=== PATIENT | female | born 1980 | race African-American/Black ===

== ENCOUNTER → 2018-03-05 12:06 | Outpatient (CLI) | payer OTHER, SELFPAY ==
[2018-03-01 15:26] VITALS: BMI 33.1
[2018-03-05 14:09] LABS: Hemoglobin A1c 5.8 % (4.2-6.3)
--- OUTSIDE RECORDS SUMMARY | 2018-04-21 06:51 | XMS RPT_ITS ---
:1980 Author Organization [facility] Care Team Providers Name Role Phone DONNY DAVIS MD Attending Unavailable Oleghe, Efewongbe Attending Unavailable Oleghe, Efewongbe Referring Unavailable Oleghe, Efewongbe Attending Unavailable Oleghe, Efewongbe Referring Unavailable Oleghe, Efewongbe Primary Care Unavailable Oleghe, Efewongbe Attending Unavailable Oleghe, Efewongbe Referring Unavailable Oleghe, Efewongbe Attending Unavailable Oleghe, Efewongbe Referring Unavailable PROBLEMS PROBLEMS DATE TYPE CONDITION / CODE ATTENDING STATUS SOURCE 03/01/2018 Unknown R73.9 - Oleghe, Active [place] Hyperglycemia, Efewongbe [facility] unspecified / Hospital R73.9(ICD-10) Repository 07/20/2017 Unknown N93.8 - Other Oleghe, Active [place] specified [facility] abnormal uterine Hospital and vaginal Repository bleeding / N93.8(ICD-10) 06/25/2017 Unknown N91.2 - Oleghe, Active [place] Amenorrhea, Efewongbe [facility] unspecified / Hospital N91.2(ICD-10) Repository PROCEDURES PROCEDURES No Procedure Records FoundRESULTS RESULTS HEMOGLOBIN A1C Collected: 03/05/2018 Status: F Source: [place] 12:23 PM [facility] HOSPITAL REPOSITORY TYPE CODE TESTS RESULT OUT OF RANGE REFERENCE UNITS LAB L501.9985 4.2-6.3 % Normal HGB A1C 5.8 Performed By: #### L501.9985 #### [facility] [place], [address] INTERNAL MEDICINE Observed: 03/02/2018 Status: F Source: [place] OFFICE VISIT 4:46 PM [facility] REPOSITORY [facility] [address] [place] [address] [place] [address] OFFICE VISIT Date of Service: 03/01/18 MR#: [id number] Acct: [id number] Name: OLIVIA CHENEY Rep #: [id number] : 1980 Provider: Donny Davis MD Age/Sex: 37/F Location: [facility] Status: Signed Intake Vital Signs03/01/18 Body Mass Index (BMI) 33.1 03/01/18 Height 5 ft 5 in Intake Visit Reasons: F/U Chief Complaint: follow-up Is patient in pain?: No Allergies No Known Allergies Allergy (Unverified 06/25/17 16:38) Medications NK 06/25/17 [History Confirmed 06/25/17] Is last menstrual period known: Yes PFSH Family History Mother Diabetes Hypertension Social History Smoking Status: Never smoker alcohol intake: never substance use type: does not use what type of physical activity do you participate in: walking frequency: other details: Occasionally HPI HPI Chief Complaint: follow-up Details: OLIVIA CHENEY, is a F who presents to the office today for follow-up of hypertension. Blood pressure optimal at this time at 118/70 8 mmHg. She is also followed up with gynecology for dysfunctional uterine bleed and OCPs were recommended however patient declined. She is however open to trying out IUDs. Periods have been regular lately. ROS Const Constitutional: No weight change, body ache, chills, fatigue, sleep problems, fever(s), change in appetite, snoring, weakness, frequent falls, headache(s) or excessive sweating Eyes Eyes: No change in vision, eye pain, light sensitivity or blurry vision ENT ENT: No headache(s), abnormal hearing, ear pain, tinnitus, sore throat or neck pain Resp Respiratory: No snoring, shortness of breath or wheezing Cardio Cardiology: No excessive sweating, chest pain at rest, chest pain with exertion, shortness of breath, dyspnea on exertion, palpitations, orthopnea or lightheadedness Gastro GI: No abdominal pain, change in bowel habits, constipation, diarrhea, vomiting, nausea/dyspepsia or cramping Genitourinary-Female: No burning urination, painful urination, urinary incontinence, urinary frequency, abnormal vaginal bleeding, pelvic pain or other Musc Musculoskeletal: No neck pain, abnormal walking, joint pain, back pain, limited range of motion, numbness, tingling or muscle weakness Skin Skin: No redness, dry skin, itching, lesions, wounds or rash Neuro Neurology: No weakness, frequent falls, headache(s), abnormal hearing, abnormal walking, numbness, tingling, abnormal speech, dizziness or memory loss Psych Psychiatric: No change in appetite, No memory loss, No anxiety, No depression, No Thoughts of harming yourself/Others Endo Endocrine: No fatigue, excessive sweating, cold intolerance, increased thirst/drinking, heat intolerance, flushing or increased hunger Aller/Imm Allergy/Immunologic: No wheezing, itchy eyes, hives or seasonal allergy symptoms Christiano/Lymp Hematologic/Lymphatic: No easy bleeding, easy bruising or enlarged lymph nodes Exam Const General: cooperative, no acute distress Orientation: alert, awake, oriented x3 [facility] Head: atraumatic, normocephalic Ears: hearing grossly normal bilaterally Resp Effort AND Inspection: normal respiratory effort, able to speak in complete sentences Auscultation: Bilateral: Clear to Auscultation Cardio Rate: regular rate Rhythm: regular rhythm Heart Sounds: S1 normal, S2 normal GI Inspection: obesity Palpation: soft, no hepatosplenomegaly Musc Musculoskeletal: No muscle weakness Neuro General: alert, awake, oriented x3, moves all extremities, CN's II-XI intact bilaterally Extrem General: no clubbing, cyanosis or edema Psych Appearance: grossly normal Mood: congruent mood Affect: normal affect Assessment AND Plan 1. Hypertension I10 Plan Optimally controlled. Currently not on any medication. Continue lifestyle and dietary modifications. 2. Dysfunctional uterine bleeding N93.8 Plan Resolved. Now said to be regular. 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 Will like to try IUDs for contraception. 3. Hyperglycemia R73.9 Plan Noted during her last blood work. Blood sugar of 167. Patient is not sure if this was fasting or random. No prior history/known history of diabetes. A1c ordered. This note was generated with [employer] dictation software. It may contain incorrect words, spelling, and punctuation that were not noted in checking the note before signing. Orders Orders: Coding Level of Care Code Off vis,est,level 3 Diagnoses Hypertension I10 Dysfunctional uterine bleeding N93.8 Hyperglycemia R73.9 03/02/18 1646 <Electronically signed by Donny Davis MD> Date Donny Davis MD Cosigner Signature: Date (if applicable) CC: INTERNAL MEDICINE Observed: 07/21/2017 Status: F Source: [place] OFFICE VISIT 8:31 AM [facility] [address] [place] [address] [place] [address] OFFICE VISIT Date of Service: 07/20/17 MR#: [id number] Acct: [id number] Name: OLIVIA CHENEY Rep #: [id number] : 1980 Provider: Donny Davis MD Age/Sex: 36/F Location: [facility] [place] Status: Signed Intake Vital Signs07/20/17 Height 5 ft 5 in Intake Visit Reasons: 2 WK FU Chief Complaint: follow-up Is patient in pain?: No Allergies No Known Allergies Allergy (Unverified 06/25/17 16:38) Medications NK [NK] 06/25/17 [History Confirmed 06/25/17] PFSH Family History Mother Diabetes Hypertension Social History Smoking Status: Never smoker alcohol intake: never substance use type: does not use what type of physical activity do you participate in: walking frequency: other details: Occasionally HPI HPI Chief Complaint: follow-up Details: OLIVIA CHENEY, is a 36yo F who presents to the office today for follow up. She was seen at her last visit for dysfunctional uterine bleeding. She has no acute complaints at this time. Blood pressure is slightly elevated. Also noted to be elevated at her last visit. No prior history of hypertension however, a strong positive family history. She denies any history of hyperlipidemia. ROS Const Constitutional: No body ache, chills, headache(s), weakness or fever(s) Eyes Eyes: No blurry vision, change in vision, eye pain or discharge ENT ENT: No headache(s), abnormal hearing, ear pain, ear pressure, tinnitus, dizziness/vertigo or balance problems Resp Respiratory: No cough, shortness of breath or wheezing Cardio Cardiology: No chest pain at rest, shortness of breath, dyspnea on exertion or palpitations Gastro GI: No abdominal pain or bloating Musc Musculoskeletal: No muscle weakness Neuro Neurology: No headache(s), weakness or abnormal hearing Aller/Imm Allergy/Immunologic: No wheezing Exam Const General: cooperative, no acute distress Orientation: alert, awake, oriented x3 [facility] Head: atraumatic, normocephalic Ears: hearing grossly normal bilaterally Resp Effort AND Inspection: normal respiratory effort, able to speak in complete sentences Auscultation: Bilateral: Clear to Auscultation Cardio Rate: regular rate Rhythm: regular rhythm Heart Sounds: S1 normal, S2 normal GI Inspection: obesity Palpation: soft, no hepatosplenomegaly Musc Musculoskeletal: No muscle weakness Neuro General: alert, awake, oriented x3, moves all extremities, CN's II-XI intact bilaterally Extrem General: no clubbing, cyanosis or edema Psych Appearance: grossly normal Mood: congruent mood Affect: normal affect Assessment AND Plan 1. Dysfunctional uterine bleeding N93.8 Plan No new changes. Still Amenorrheic. / Further child bearing is not desired. Ultrasound with a small fibroid ( Stable per patient ). Labs not available for review. She may benefit from OCP's. Referred to Gynecology. Follow up in 3 months Orders Referrals: 2. Hypertension I10 Plan Stage 1. Strong family history of. No history of diabetes or hypercholesterolemia. Life style / dietary modifications discussed. Follow up in 3 months. This note was generated with [employer] software. It may contain incorrect words, spelling, and punctuation that were not noted in checking the note before signing. Plan Detail Follow Up 3 Months Coding Level of Care Code Off vis,est,level 3 Diagnoses Dysfunctional uterine bleeding N93.8 Hypertension I10 07/21/17 0831 <Electronically signed by Donny Davis MD> Date Donny Davis MD Cosigner Signature: Date (if applicable) CC: CBC Collected: 07/01/2017 Status: F Source: [facility] 1:58 PM [facility] REPOSITORY TYPE CODE TESTS RESULT OUT OF REFERENCE UNITS RANGE LAB WBC(LOINC) 4.60-10.80 10 3/mcL WBC 10.40 LAB RBCCT(LOINC 4.20-5.40 10 6/mcL ) RBC 5.15 LAB HGB(LOINC) 12.0-16.0 G/dL Hgb 13.6 LAB HCT(LOINC) 37.0-47.0 % Hct 40.4 LAB MCV(LOINC) 80.0-94.0 fL Low MCV 78.5 LAB MCH(LOINC) 27.0-31.2 pg Low MCH 26.3 LAB MCHC(LOINC) 33.0-37.0 G/dL MCHC 33.5 LAB RDW(LOINC) 11.5-14.5 % High RDW 15.0 LAB PLT(LOINC) 130-400 10 3/mcL Platelet 320 LAB MPV(LOINC) 7.4-10.4 fL MPV 8.8 Performed By: #### CBC, ADIFF, ANEU, CMP, GFR, TSH, FT4, HCGQ #### [address] [address] [place], [place] [address] .AUTO DIFF Collected: 07/01/2017 Status: F Source: [facility] 1:58 PM [facility] REPOSITORY TYPE CODE TESTS RESULT OUT OF REFERENCE UNITS RANGE LAB OLIVIA(LOINC) 37.0-80.0 % Neutrophil % 74.3 LAB LYM(LOINC) 10.0-50.0 % Lymphocyte % 17.0 LAB MON(LOINC) 1.7-13.0 % Monocyte % 5.4 LAB EO(LOINC) 0.0-7.0 % Eosinophil % 2.4 LAB BAS(LOINC) 0.0-2.5 % Basophil % 0.9 LAB ABLYM(LOIN 0.77-3.85 10 3/mcL C) Lymphocyte, 1.80 Absolute LAB JOHN(LOINC 0.15-1.00 10 3/mcL ) Monocyte, 0.60 Absolute LAB AEOS(LOINC 0.00-0.40 10 3/mcL ) Eosinophil, 0.30 Absolute LAB ABAS(LOINC 0.00-0.19 10 3/mcL ) Basophil, 0.10 Absolute Performed By: #### CBC, ADIFF, ANEU, CMP, GFR, TSH, FT4, HCGQ #### [address] [address] .NEUABS Collected: 07/01/2017 Status: F Source: [facility] 1:58 PM [facility] REPOSITORY TYPE CODE TESTS RESULT OUT OF REFERENCE UNITS RANGE LAB ANEU(LOINC) 2.85-6.16 10 3/mcL High Neutrophil, 7.70 Absolute Performed By: #### CBC, ADIFF, ANEU, CMP, GFR, TSH, FT4, HCGQ #### [address] [address] CMP Collected: 07/01/2017 Status: F Source: [facility] 1:58 [facility] REPOSITORY TYPE CODE TESTS RESULT OUT OF REFERENCE UNITS RANGE LAB 1547-9 70-105 mg/dL GLUCOSE High 167 LAB NA(LOINC) 136-146 mEq/L Sodium Level 138 LAB K(LOINC) 3.5-5.1 mEq/L Potassium Level 4.0 LAB CL(LOINC) 98-107 mEq/L Chloride 102 LAB CO2(LOINC) 22-29 mEq/L CO2 28 LAB EBAL(LOINC mEq/L ) Electrolyte Balance 8.0 LAB BUN(LOINC) 7.0-18.0 mg/dL BUN 11.4 LAB CRE(LOINC) 0.6-1.2 mg/dL Creatinine Lvl (s) 1.0 LAB BC(LOINC) 7-27 ratio BUN/Creatinine 11 Ratio LAB CA(LOINC) 8.4-10.2 mg/dL Calcium Lvl 8.9 LAB PROT(LOINC 6.0-8.3 G/dL ) Total Protein 6.5 LAB ALB(LOINC) 3.5-5.0 G/dL Albumin Level 4.1 LAB GLB(LOINC) G/dL Globulin 2.4 LAB AG(LOINC) 1.1-2.5 ratio A/G Ratio 1.7 LAB BILT(LOINC 0.2-1.0 mg/dL ) Bili Total 0.4 LAB AP(LOINC) 40-135 IU/L Alk Phos 108 LAB AST(LOINC) 10-40 IU/L AST/SGOT 20 LAB ALT(LOINC) 10-35 IU/L ALT/SGPT 24 Performed By: #### CBC, ADIFF, ANEU, CMP, GFR, TSH, FT4, HCGQ #### [address] [address] .GFR Collected: 07/01/2017 Status: F Source: [facility] 1:58 PM [facility] REPOSITORY TYPE CODE TESTS RESULT OUT OF REFERENCE UNITS RANGE LAB GFRAA(LOINC ml/min/1.73 ) sqm GFR 75 Iranian Result Comment: GFR Population mean for , Non- Americans Ages 20-29 = 116 mL/min/1.73 sq.m. Ages 30-39 = 107 mL/min/1.73 sq.m. Ages 40-49 = 99 mL/min/1.73 sq.m. Ages 50-59 = 93 mL/min/1.73 sq.m. Ages 60-69 = 85 mL/min/1.73 sq.m. Ages 70+ = 75 mL/min/1.73 sq.m. Chronic Kidney Disease: Less than 60 mL/min/1.73 square meters End Stage Renal Disease: Less than 15 mL/min/1.73 square meters LAB GFRNO(LOINC) ml/min/1.73sqm GFR Non- >60 Result Comment: GFR Population mean for , Non- Americans Ages 20-29 = 116 mL/min/1.73 sq.m. Ages 30-39 = 107 mL/min/1.73 sq.m. Ages 40-49 = 99 mL/min/1.73 sq.m. Ages 50-59 = 93 mL/min/1.73 sq.m. Ages 60-69 = 85 mL/min/1.73 sq.m. Ages 70+ = 75 mL/min/1.73 sq.m. Chronic Kidney Disease: Less than 60 mL/min/1.73 square meters End Stage Renal Disease: Less than 15 mL/min/1.73 square meters Performed By: #### CBC, ADIFF, ANEU, CMP, GFR, TSH, FT4, HCGQ #### [address] [place], [place] [address] TSH Collected: 07/01/2017 Status: F Source: [facility] 1:58 [facility] REPOSITORY TYPE CODE TESTS RESULT OUT OF RANGE REFERENCE UNITS LAB TSH(LOINC) 0.27-4.20 mcIU/mL TSH 0.91 Performed By: #### CBC, ADIFF, ANEU, CMP, GFR, TSH, FT4, HCGQ #### [address] [address] FT4 Collected: 07/01/2017 Status: F Source: [facility] 1:58 [facility] REPOSITORY TYPE CODE TESTS RESULT OUT OF RANGE REFERENCE UNITS LAB FT4(LOINC) 0.6-1.7 ng/mL Free T4 1.0 Performed By: #### CBC, ADIFF, ANEU, CMP, GFR, TSH, FT4, HCGQ #### [address] [address] HCGQ Collected: 07/01/2017 Status: F Source: [facility] 1:58 [facility] REPOSITORY TYPE CODE TESTS RESULT OUT OF REFERENCE UNITS RANGE LAB HCGQ(LOINC mIU/mL ) hCG, quantitative <0.5 Result Comment: Below measuring range Quantitative hCG reference ranges: 3 Weeks 5-12 mIU/mL 4 Weeks 10-708 mIU/mL 5 Weeks 217-8,245 mIU/mL 6 Weeks 152-32,177 mIU/mL 7 Weeks 4,059-153,767 mIU/mL 8 Weeks 31,366-149,094 mIU/mL 9 Weeks 59,109-135,901 mIU/mL 10 Weeks 44,186-170,409 mIU/mL 12 Weeks 27,107-201,615 mIU/mL 14 Weeks 24,302-93,646 mIU/mL 16 Weeks 8,905-55,332 mIU/mL Performed By: #### CBC, ADIFF, ANEU, CMP, GFR, TSH, FT4, HCGQ #### [address] [place] [address], [place] [address] US PELVIS NON-OB Observed: 07/01/2017 Status: F Source: [place] W/TRANSVAGINAL 1:00 PM [facility] REPOSITORY ORIGINAL US PELVIS NON-OB TRANSABDOMINAL AND TRANSVAGINAL CLINICAL STATEMENT: Increased bleeding after Depo injection December 2016 COMPARISON: None FINDINGS: The anteverted uterus is 10.4 x 5.0 x 6.3 cm and has normal echotexture. Areas a myometrial fibroid with peripheral calcifications, measuring 2.4 x 2.7 x 2.7 cm. The endometrial double wall thickness is 7 mm. The ovaries are normal in size. The right ovary measures 3.1 x 2.2 x 2.6 cm. The dominant follicles noted within the right ovary. The left ovary measures 2.7 x 2.0 x 2.4 cm. There is positive doppler flow to both ovaries. A small amount of cul-de-sac fluid is considered physiologic. IMPRESSION: 1. There is a myometrial fibroid with peripheral calcifications. 2. The ovaries have a normal sonographic appearance. Interpreted By: Deborah Acuña MD Preliminary Report By: Deborah Acuña MD Electronically Signed By: Deborah Acuña MD Dictated Date: 07/02/2017 12:55:40 PM Prelim Date: 07/02/2017 12:55:40 PM Sign Date: 07/02/2017 12:59:42 PM INTERNAL MEDICINE Observed: 06/26/2017 Status: F Source: [place] OFFICE VISIT 5:10 PM [facility] REPOSITORY [facility] [address] [place] [address] [place] [address] OFFICE VISIT Date of Service: 06/25/17 MR#: [id number] Acct: [id number] Name: OLIVIA CHENEY Rep #: [id number] : 1980 Provider: Donny Davis MD Age/Sex: 36/F Location: [facility] [place] Status: Signed Intake Vital Signs06/25/17 Height 5 ft 5 in 06/25/17 Weight: 198 lb 06/25/17 Body Mass Index (BMI) 32.9 06/25/17 Blood Pressure 142/85 06/25/17 Blood Pressure Location Lt brachial Intake Visit Reasons: EST CARE/ CHECK UP Chief Complaint: Est Care - Check up Is patient in pain?: No Allergies No Known Allergies Allergy (Unverified 06/25/17 16:38) Medications NK [NK] 06/25/17 [History Confirmed 06/25/17] PFSH Family History Mother Diabetes Hypertension Social History Smoking Status: Never smoker alcohol intake: never substance use type: does not use what type of physical activity do you participate in: walking frequency: other details: Occasionally HPI HPI Chief Complaint: Est Care - Check up Details: Olivia Cheney , is a 36yoF who presents to the office today for to establish care. She also has some concerns. Patient reports a history of abnormal uterine bleeding which started in March. Prior to onset, she had a Depo-Provera shot in December and subsequently had no menstrual flows in the month of December and January and February. For the months of March and April she states daily menstrual flow with associated clots however, she has had no uterine bleeding for the months of May and now. She states that she had a test done and this was negative. She denies any prior / similar history. She feels well otherwise and denies dyspareunia or postcoital bleeding. She also denies any significant weight changes. There is no family history of uterine of breast cancer. ROS Const Constitutional: No anorexia, body ache, chills, fatigue, fever(s), decreased energy, malaise, night sweats, sleep problems, other, snoring, excessive sweating, weakness, frequent falls, headache(s), abnormal sleep pattern or change in appetite Eyes Eyes: No blurry vision, change in vision, double vision, discharge, dry eyes, bulging eyes, floaters, eye pain, light sensitivity, spots in vision, tunnel vision, other or visual disturbances ENT ENT: No difficulty swallowing, neck pain, abnormal hearing, headache(s), lip swelling, throat swelling or tongue swelling Resp Respiratory: No cough, change in phlegm color, chest congestion, excessive phlegm production, hemoptysis, pain on inspiration, shortness of breath, pain with cough, snoring, stridor, other or wheezing Cardio Cardiology: No chest pain at rest, chest pain with exertion, leg pain with exertion, excessive sweating, shortness of breath, dyspnea on exertion, generalized swelling, irregular heart rhythm, lightheadedness, orthopnea, radiating jaw, neck or arm pain, fast heart rate, slow heart rate, palpitations or other Gastro GI: No abdominal pain, belching, bloating, change in bowel habits, change in stool character, coffee ground emesis, constipation, cramping, diarrhea, heartburn, difficulty swallowing, feeling full early, excessive flatus, incontinent of stools, Vomiting blood/hematemesis, blood in stool, loose stools, Black,tarry stools, nausea/dyspepsia, pain with swallowing, vomiting or other Genitourinary-Female: Positive for other (Vaginal bleeding two months after on the Depo Shot); no difficulty urinating, burning urination, painful urination, urinary incontinence, urinary frequency, urinary urgency, urinary hesitancy, urinary retention, blood in urine, Frequent nighttime urination/ nocturia, post void dribbling, suprapubic fullness, side pain, sexual problems, genital lesions, genital itching, hot flashes, abnormal periods, abnormal vaginal bleeding, absent period, painful periods, light periods, heavy periods, difficulty getting , painful intercourse, pelvic pain, vaginal dryness, vaginal odor or Vaginal Itching Musc Musculoskeletal: No joint pain, back pain, deformity, joint swelling, limited range of motion, loss of height, muscle cramps, muscle weakness, decreased muscle mass, body aches, neck pain, radiating pain into limb, stiffness, other, abnormal walking, numbness or tingling Skin Skin: No acne, hair loss, change in hair, nail changes, boil, change in skin color, dry skin, redness, excessive hair growth, yellowing of the skin, lesions, rash, skin pain, skin ulcer, sores, skin swelling, wounds, other or itching Breast Breast: No change in breast shape, breast lump, breast pain, breast skin changes, breast swelling, nipple discharge or other Neuro Neurology: No abnormal walking, abnormal hearing, abnormal movements, abnormal speech, unsteady gait/balance, dizziness, weakness, frequent falls, headache(s), lack of coordination, loss of vision, numbness, tingling, visual disturbances, restless legs, fainting, tremor(s), other, behavioral changes, confusion or memory loss Psych Psychiatric: No abnormal sleep pattern, No lack of enjoyment, No anxiety, No behavioral changes, No change in appetite, No confusion, No depression, No difficulty concentrating, No hopelessness, No irritability, No memory loss, No mood swings, No panic attacks, No paranoia, No Thoughts of harming yourself/Others, No hallucinations, No other Endo Endocrine: Positive for heat intolerance; no fatigue or excessive sweating Aller/Imm Allergy/Immunologic: No food intolerance, itchy eyes, lip swelling, seasonal allergy symptoms, throat swelling, tongue swelling, hives, wheezing or other Christiano/Lymp Hematologic/Lymphatic: No easy bleeding, easy bruising, enlarged lymph nodes or other Exam Const General: cooperative, no acute distress Orientation: alert, awake, oriented x3 [facility] Head: atraumatic, normocephalic Ears: hearing grossly normal bilaterally Resp Effort AND Inspection: normal respiratory effort, able to speak in complete sentences Auscultation: Bilateral: Clear to Auscultation Cardio Rate: regular rate Rhythm: regular rhythm Heart Sounds: S1 normal, S2 normal GI Inspection: obesity Palpation: soft, no hepatosplenomegaly Musc Musculoskeletal: No muscle weakness Neuro General: alert, awake, oriented x3, moves all extremities, CN's II-XI intact bilaterally Extrem General: no clubbing, cyanosis or edema Psych Appearance: grossly normal Mood: congruent mood Affect: normal affect Assessment AND Plan 1. Dysfunctional uterine bleeding N93.8 Plan Symptoms started 3 months after a period of amenorrhea and a Depo-Provera shot. She reports daily menstrual flow associated with clots for about 2 months. No prior episodes. No menstrual flow since the month of May. test done per patient was negative. Could be medication induced. Pelvic ultrasound ordered. CBC, CMP, thyroid function tests also ordered. Follow-up with results. Orders Orders: 2. Amenorrhea N91.2 Plan Dysfunctional uterine bleeding as discussed above. Serum hCG ordered to rule out . Follow-up with results. This note was generated with [employer] software. It may contain incorrect words, spelling, and punctuation that were not noted in checking the note before signing. Orders Orders: Plan Detail Follow Up 2 Weeks Coding Level of Care Code Off vis,new,level 4 Diagnoses Dysfunctional uterine bleeding N93.8 Amenorrhea N91.2 06/26/17 1710 <Electronically signed by Donny Davis MD> Date Donny Davis MD Cosigner Signature: Date (if applicable) CC: HBSAB Collected: 04/23/2017 Status: F Source: [facility] 2:55 PM [facility] REPOSITORY TYPE CODE TESTS RESULT OUT OF RANGE REFERENCE UNITS LAB HBSAB(LOINC mIU/mL ) Hep B 0.8 Surf Ab Result Comment: Anti-HBs Interpretation: 0 to <5.0 mIU/mL Negative Patient is considered to be not immune to infection with HBV. >/= 5.0 and <12.0 mIU/mL Equivocal Unable to determine if anti-HBs is present at levels consistent with immunity. Patient's immune status should be further assessed by considering other clinical information or retesting another sample drawn at a later time. >/= 12.0 mIU/mL Positive Patient is considered to be immune to infection with HBV. It has not been determined what the clinical significance is for values greater than or equal to 12.0 mIU/mL, other than the individual is considered to be immune to HBV infection. Performed By: #### HBS[facility] #### [place] [address] ALLERGIES ALLERGIES DATE TYPE / CODE NAME / CODE REACTION SEVERITY SOURCE 06/25/2017 Drug No Known Unknown [facility] Allergy/4160 Allergies/F00 [facility] [address](SNOMED 3111041(RXNOR Repository CT) M) ENCOUNTERS ENCOUNTERS ADMIT/DISCHARGE ACCOUNT NUMBER ADMITTING ENCOUNTER LOCATION SOURCE CLASS 03/05/2018 [id number] Ambulatory [facility] ding:LAB Repository 03/01/2018/03/01/20 [id number] Ambulatory BMSBuilding: [address] Repository 07/20/2017/07/21/19 [id number] Ambulatory BMSBuilding: [place] [address] [facility] 07/01/2017/07/02/19 [id number] Ambulatory BBuilding:RA [place] [facility] Repository 06/25/2017/06/26/19 [id number] Ambulatory BMSBuilding[place] [facility] [place] PAYERS PAYERS ENCOUNTER GUARANTOR PAYER SUBSCRIBER SOURCE 03/05/2018 OLIVIA Primary OLIVIA [place] [id number] Insurance:CIGNAPolicy ADEYODOB: [facility] [place]: [id number] [id number] Repository [address]Hnv: (401) Date:7773-55-55QI [phone] () [place]123[place]GBKNPZFZ[place]LP, [place] [address]NO: 03/05/2018 Secondary NOT GIVENUNK [place] Insurance:SELF PAY [facility] Number: Effective Repository Date:2018-03-05 03/01/2018 OLIVIA Primary OLIVIA Jerman [id number] Insurance:CIGNAPolicy ADEYODOB: [facility] [place]: [id number] [id number] Repository [address]Auy: (401) Date:6654-33-26ED [phone] () [id number], [place] [address]RW: 03/01/2018 Secondary NOT GIVENUNK Jerman Insurance:SELF PAY [facility] Number: Effective Repository Date:2018-02-22 07/20/2017 OLIVIA Primary OLIVIA [place] [id number] Insurance:AULTCAREPol ADEYODOB: [facility] Number: [id number] [id number] Repository [address]Vey: (401 e Date:[id number] [phone] () [address] [place] [phone]: 07/20/2017 Secondary NOT GIVENUNK Jerman Insurance:SELF PAY [facility] Number: Effective Repository Date:2017-07-20 [facility]/01/[facility] Insurance:AULTCARE ADEYODOB: [facility] [id number] Number: [id number] [facility] [id number] 2 [place], [place] e Date:2017-06-29 - [place], [place] [address]Jzm: [phone] [id number] [phone]: () Name:[employer] [phone] [place] [address] ()Tel: [phone]: [phone] 06/25/2017 EDENKYE Primary EDAFSHAN Stoll [id number] [facility] Number: [id number] [id number] Repository [address]Qqf: (166) e Date:5283-03-40UQ [phone] () [address] [place] [phone]: 06/25/2017 Secondary NOT GIVENUNK [place] Insurance:SELF PAY [facility] Number: Effective Repository Date:2017-06-25
== END ==
PROVIDERS: Family Provider Internal Medicine; PCP Internal Medicine; Referring Provider Internal Medicine; Visit Provider Internal Medicine
DX: R73.9 Hyperglycemia, unspecified (principal)
CPT/HCPCS: 36415; 83036

== ENCOUNTER → 2018-06-29 09:23 | Outpatient (CLI) | payer OTHER, SELFPAY ==
[2018-06-22 13:05] VITALS: BMI 33.1
[2018-06-29 12:37] LABS: Anion Gap 9 (5-15); BUN 10 mg/dL (7-18); BUN/Creat Ratio 9.4 RATIO (10-20); Calcium,Total 8.7 mg/dL (8.5-10.1); Chloride 104 mmol/L (98-107); Creatinine, Serum 1.06 mg/dL (0.55-1.02); EST Glomerular Filtration Rate 62 mL/min (>60); Est Glom Filt Rate - Afr Amer 75 mL/min (>60); Glucose 97 mg/dL (74-106); Potassium 4.1 mmol/L (3.5-5.1); Sodium Level 139 mmol/L (136-145)
[2018-06-29 12:44] LABS: Hemoglobin A1c 5.4 % (4.2-6.3)
== END ==
PROVIDERS: Family Provider Internal Medicine; PCP Internal Medicine; Visit Provider Internal Medicine
DX: I10 Essential (primary) hypertension (principal); R73.03 Prediabetes
CPT/HCPCS: 36415; 80048; 83036